=== PATIENT | male | born 2000 | race Caucasian/White ===

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

== ENCOUNTER 2022-11-21 15:25 | Emergency (ER) | payer MEDICAID, SELFPAY ==
[2022-11-21 15:42] VITALS: BP 138/79; PULSE 52; RESP 18; TEMP 36.7; O2SAT 99; BMI 25.1
--- NOTE | 2022-11-21 15:42 | ED_ITS ---
HPI - Skin/Abscess/Foreign Bdy General Chief complaint: General Medical Stated complaint: spider bite Time Seen by Provider: 11/21/22 15:47 Source: patient, RN notes reviewed and old records reviewed Mode of arrival: ambulatory History of Present Illness HPI narrative: 22-year-old male with a past medical history of asthma presenting to the ED complaining pustule noted to right leg x2 days. Patient reports increasing discomfort/pain. Denies known tick/insect bite, fever/chills, drainage from area. MD complaint: abscess/boil Related Data Previous Rx's Medication Instructions Recorded albuterol sulfate 90 mcg/actuation 2 puff inhalation Q4-6H PRN 12/29/19 aerosol inhaler shortness of breath or wheezing #6.7 grams ondansetron HCl 4 mg tablet 4 mg PO Q8H PRN nausea and 12/29/19 (Zofran) vomiting #10 tabs ondansetron HCl 4 mg tablet 4 mg PO Q8H PRN nausea and 12/29/19 (Zofran) vomiting #10 tabs prednisone 20 mg tablet 40 mg (2 x 20 mg) PO DAILY 5 days 12/29/19 #10 tabs doxycycline hyclate 100 mg tablet 100 mg PO BID 7 days #14 tabs 11/21/22 Allergies Allergy/AdvReac Type Severity Reaction Status Date / Time amoxicillin [AMOXICILLIN] Allergy Intermediate RASH Verified 12/29/19 00:11 Penicillins [PENICILLINS] Allergy Unknown RASH Verified 12/29/19 00:11 Review of Systems Review of Systems: Constitutional: No Fever, No Chills ENT/Mouth: No Ear Pain, No Nasal Congestion, No Sinus Pain, No Hoarseness, No sore throat, No Rhinorrhea, No Swallowing Difficulty Cardiovascular: No Chest Pain, No SOB Respiratory: No Cough Gastrointestinal: No Nausea, No Vomiting, No Abdominal pain Musculoskeletal: No joint pain, No Myalgias, No Joint Swelling Skin: +Skin Lesions, No rash Neuro: No Weakness Yes all other systems are reviewed and are negative Constitutional: Constitutional: Reports as per [facility] Past Medical History Attestation statement: The following information was validated with the patient. Source: old records reviewed Social History Social History Advance Directives: No Advance Directives Information Provided: No Physical Exam Vital Signs: Vital Signs: Last Vital Signs Temp 98.1 F 11/21/22 15:42 Pulse 52 11/21/22 15:42 Resp 18 11/21/22 15:42 BP 138/79 11/21/22 15:42 Pulse Ox 99 11/21/22 15:42 O2 Del Method Room Air 11/21/22 15:42 BMI result Body Mass Index 25.1 Const: General: cooperative, healthy appearing and no acute distress Orientation/consciousness: patient oriented x3 Limitations: no limitations HEENT: Head: Yes normal to inspection and Yes atraumatic Ears: hearing grossly normal bilaterally General nose exam: Normal external nose present Face and sinus: Yes normal facial exam Eyes: General: appearance normal, both eyes and all related structures EOM: EOMs intact bilaterally Neck: Neck: Yes normal visual inspection and Yes no meningeal signs Resp: Effort & Inspection: normal respiratory effort and no respiratory distress Cardio: Rate: regular rate Skin: Other: + small pustule noted to right mid tib/f ib. No fluctuance or induration. + surrounding erythema. No warmth. No crepitus. No lymphangitis Rashes: no rashes Neuro: General: patient oriented x3, tone normal and no meningeal signs Cranial nerves: Yes CN's II-XII intact bilaterally Gait exam (Neuro): Normal gait present Extrem: General: Yes normal to inspection Medical Decision Making Medical Decision Making MDM Narrative: 22-year-old male with a past medical history of asthma presenting to the ED complaining pustule noted to right leg x2 days. On exam vital signs stable, NAD, nontoxic appearing, physical exam as noted above with small pustule to right anterior tib/fib, small amount of pus drainage expressed on exam. Concern for small abscess/folliculitis vs ?Insect bite with early cellulitis. Low suspicion for osteomyelitis, DVT or deeper infection Plan: Po doxycycline, PCP follow-up Results discussed with patient including worrisome signs and symptoms and strict return precautions, and when to return to the emergency department. They verbalized understanding and feel safe for discharge at this time. Differential Diagnosis Differential Diagnoses: The differential diagnosis associated with the presentation includes As above External Record Review External record reviewed: Inpatient record, Office record, Outpatient record, Prior outpatient labs, Prior outpatient radiology, Primary care record and Outside ED record Tests considered The following testing was considered but not selected: As above Prescription Management I considered prescription management with: Pain Medication and Antibiotic Chronic Conditions Patient?s care impacted by: Other (asthma) Discharge Plan Discharge Clinical Impression: Cellulitis Patient Disposition: Home, Self-Care Instructions: Cellulitis (DC) Additional Instructions: Apply warm compresses Take Tylenol Motrin as needed Doxycycline is an antibiotic please take as prescribed If areas worsening/spreading you develop red streaking, fever, or pus drainage return to the ED Prescriptions: New doxycycline hyclate 100 mg tablet 100 mg PO BID 7 Days Qty: 14 0RF No Action ondansetron HCl [Zofran] 4 mg tablet 4 mg PO Q8H PRN (Reason: nausea and vomiting) Qty: 10 0RF prednisone 20 mg tablet 40 mg PO DAILY 5 Days Qty: 10 0RF albuterol sulfate 90 mcg/actuation HFA aerosol inhaler 2 puff inhalation Q4-6H PRN (Reason: shortness of breath or wheezing) Qty: 6.7 0RF ondansetron HCl [Zofran] 4 mg tablet 4 mg PO Q8H PRN (Reason: nausea and vomiting) Qty: 10 0RF Referrals: Physician,Unknown J [Primary Care Provider] -
== END 2022-11-21 16:04 | disposition home or self-care (01) ==
PROVIDERS: Emergency Provider Student in an Organized Health Care Education/Training Program
DX: L03.115 Cellulitis of right lower limb (principal); Z79.899 Other long term (current) drug therapy
CPT/HCPCS: 99282; 99283